=== PATIENT | male | born 1980 | race Caucasian/White ===

== ENCOUNTER 2017-10-11 14:02 | Emergency (ER) | payer OTHER ==
[~2017-10-11] VITALS: Ht 175.3 cm; Wt 59.1 kg
[2017-10-11 14:16] VITALS: BP 114/50
--- NOTE | 2017-10-11 14:26 | PHYS DOC ---
Past History Past Medical History: No Pertinent History Additional Past Medical Histor: tetanus up-to-date per the patient Smoking: Non-smoker Alcohol Use: None Adult General Chief Complaint Chief Complaint: LACERATION/AVULSION HPI HPI Patient is a 37 year old female who presents with aspiration to the tip of the right index finger with a knife in the kitchen that was clean some moderate bleeding at home she washed it out no longer bleeding no other injury. Review of Systems Review of Systems Constitutional: Denies fever or chills [] Eyes: Denies change in visual acuity, redness, or eye pain [] HENT: Denies nasal congestion or sore throat [] Respiratory: Denies cough or shortness of breath [] Cardiovascular: No additional information not addressed in HPI [] GI: Denies abdominal pain, nausea, vomiting, bloody stools or diarrhea [] : Denies dysuria or hematuria [] Musculoskeletal: Denies back pain or joint pain [] Integument: Denies rash or skin lesions [] Neurologic: Denies headache, focal weakness or sensory changes [] Endocrine: Denies polyuria or polydipsia [] All other systems were reviewed and found to be within normal limits, except as documented in this note. Physical Exam Physical Exam Constitutional: Well developed, well nourished, no acute distress, non-toxic appearance. [] HENT: Normocephalic, atraumatic, bilateral external ears normal, oropharynx moist, no oral exudates, nose normal. [] Eyes: PERRLA, EOMI, conjunctiva normal, no discharge. [] Neck: Normal range of motion, no tenderness, supple, no stridor. [] Cardiovascular:Heart rate regular rhythm, no murmur [] Lungs & Thorax: Bilateral breath sounds clear to auscultation [] Abdomen: Bowel sounds normal, soft, no tenderness, no masses, no pulsatile masses. [] Skin: Warm, dry, no erythema, no rash. [] Back: No tenderness, no CVA tenderness. [] Extremities: Examination right index finger flap-like laceration is completely sealed shut on the tip of the finger; no nailbed or nail injury; neurovascularly intact Neurologic: Alert and oriented X 3, normal motor function, normal sensory function, no focal deficits noted. [] Psychologic: Affect normal, judgement normal, mood normal. [] EKG EKG [] Radiology/Procedures Radiology/Procedures [] Course & Med Decision Making Course & Med Decision Making Pertinent Labs and Imaging studies reviewed. (See chart for details) []Wound is sealed shut, it's clean, I recommend basic wound care no indication for suturing at this time. Dragon Disclaimer Dragon Disclaimer This electronic medical record was generated, in whole or in part, using a voice recognition dictation system. Departure Departure: Impression: Primary Impression: Laceration of right index finger Disposition: HOME, SELF-CARE Condition: STABLE Referrals: MARC HODGE DO, [facility] (PCP) Patient Instructions: Fingertip Laceration Additional Instructions: Keep the finger clean and dry change dressing daily allow for to heal from the inside out. MARK HSU MD Oct 11, 2017 14:26
== END 2017-10-11 14:40 | disposition home or self-care (01) ==
LOC: ER 14:02
DX: S61.210A Laceration without foreign body of right index finger without damage to nail, initial encounter (principal); W26.0XXA Contact with knife, initial encounter; Y93.89 Activity, other specified; Y99.8 Other external cause status; Y92.89 Other specified places as the place of occurrence of the external cause
CPT/HCPCS: 99283

== ENCOUNTER 2018-02-02 13:20 | Emergency (ER) | payer OTHER ==
[~2018-02-02] VITALS: Ht 175.3 cm; Wt 63.0 kg
[2018-02-02] MEDS ORDERED: LIDO:MAALOX 1:1 20 ML SINGLE DOSE PO ONE (14:30)
[2018-02-02] MEDS ORDERED: FAMOTIDINE 20 MG/2 ML VIAL IVP ONE (14:30)
[2018-02-02] MEDS ORDERED: GLUCAGON,HUMAN RECOMBINANT 1 MG KIT. IV ONE (14:30)
[2018-02-02] MEDS ORDERED: methylPREDNISolone SOD SUCC PF 125 MG/2 ML VIAL. IV ONE (14:30)
[2018-02-02] MEDS ORDERED: PANT40TA3 PO (15:19)
[2018-02-02] MEDS ORDERED: FAMO-63 PO (15:19)
--- NOTE | 2018-02-02 15:22 | PHYS DOC ---
General Chief Complaint: DIFFICULTY SWALLOWING Stated Complaint: DIFFICULTY SWALLOWING Time Seen by MD: 13:45 Source: patient Exam Limitations: no limitations Problems: History of Present Illness Initial Comments 37-year-old comes to the ED with spouse with a report of altered throat sensation. Patient states that for the past week or so she's had a fullness or foreign body sensation which will burn when eating located at the level of the sternoclavicular notch. Although she has the sensation she has no difficulty swallowing food or breathing, no trouble handling her secretions and no cough or dyspnea on exertion. She saw her PCP at [place] last and was given a steroid taper which has not helped. Symptoms are described as mild to moderate and more of a nuisance however patient would like for us to diagnose and resolve these issues. She denies any specific instance where she ate a food bolus which she knows became stuck (although that's how she describes it feels) but rather a gradual onset foreign body sensation/fullness at the aforementioned location with exacerbations of burning pain with certain foods. Her ED vital signs are stable 18 respirations 99% room air Glucagon, Solu-Medrol, famotidine, and GI cocktail treatments initiated. Patient did become dizzy and diaphoretic after glucagon infused those symptoms resolved within a minute or so without other treatment. Timing/Duration: 1 week Severity: moderate Modifying Factors: worse with eating Associated Symptoms: cough, malaise, other Allergies: Coded Allergies: Penicillins (Verified Allergy, Intermediate, 10/11/17) Sulfa (Sulfonamide Antibiotics) (Verified Allergy, Intermediate, 10/11/17) Past Medical History Medical History: GERD Surgical History: other (ACL, breast augmentation) Social History Smoker: non-smoker Alcohol: none Drugs: none Review of Systems Constitutional: denies chills, denies diaphoresis, denies fever, denies malaise EENTM: denies throat pain, denies throat swelling, denies mouth pain, denies mouth swelling Respiratory: cough, denies orthopnea, denies shortness of breath, denies stridor, denies wheezing Cardiovascular: denies chest pain, denies palpitations, denies syncope Gastrointestinal: denies abdominal pain, denies diarrhea, denies nausea, denies vomiting Musculoskeletal: denies back pain, denies joint pain, denies muscle pain, denies neck pain Psychiatric/Neurological: denies headache, denies numbness, denies paresthesia , denies weakness Hematologic/Lymphatic: denies blood clots, denies easy bleeding, denies easy bruising Physical Exam General Appearance: WD/WN, no apparent distress Eyes: bilateral eye normal inspection, bilateral eye PERRL, bilateral eye EOMI Ear, Nose, Throat: hearing grossly normal, normal ENT inspection, normal pharynx (no hoarseness, mucous membranes moist, no foreign body visualized with limited exam) Neck: non-tender, full range of motion, supple (no stridor) Respiratory: chest non-tender, lungs clear, normal breath sounds, no respiratory distress, no accessory muscle use Cardiovascular: normal peripheral pulses, regular rate, rhythm Gastrointestinal: non tender, soft Extremities: non-tender, normal inspection Neurologic/Psychiatric: lockstitch collar setter II-XII nml as tested, no motor/sensory deficits, alert, normal mood/affect, oriented x 3 Skin: normal color, warm/dry Orders, Labs, Meds Solu-Medrol used in the event atypical presentation of allergic reaction. Famotidine use for multiple reasons including assist with GERD symptoms and Augmentin possible allergic reaction treatment. Glucagon for the remote possibility there is an actual food bolus stuck to help relax with muscle out to pass. GI cocktail for successful in relieving discomfort helps to localize anatomically site of her symptoms providing diagnostic and therapeutic assistance. 1519: Patient reports that the burning symptoms have nearly completely resolved. She still has slight feeling of a lump in her throat but states overall she is feeling much better. She understands that no emergent condition no esophageal obstruction is present and further workup must take place as an outpatient. I feel she needs a GI evaluation with swallow study and EGD patient has and must obtain referrals from [place]. Departure Time of Disposition: 15:20 Disposition: 01 HOME, SELF-CARE Diagnosis: GERD esophagitis Condition: GOOD Patient Instructions: Diet for Gastroesophageal Reflux Disease, Adult, Easy-to- Read, Esophagitis, Gastroesophageal Reflux Disease, Adult, [id number] Additional Instructions: Please review the patient education materials given by ED staff. [id number] analgesic throat sprays as needed. Follow GERD dietary and lifestyle modifications at least for the next month or so. Prescription: Pepcid 20 mg twice daily for 2 weeks, Protonix twice daily for 1 month Follow-up with your doctor in 5-7 days for recheck and to discuss outpatient EGD evaluation. Return to ED with new or changing symptoms. PARI SÁNCHEZ DO Feb 02, 2018 15:22
[2018-02-02 15:50] VITALS: BP 112/68
== END 2018-02-02 15:50 | disposition home or self-care (01) ==
LOC: ER 13:20 → EDSEX 13:20 → ER 15:50
DX: K21.0 Gastro-esophageal reflux disease with esophagitis (principal); Z88.0 Allergy status to penicillin; Z88.2 Allergy status to sulfonamides
CPT/HCPCS: 96374; 96375; 99284; J1610; J2930; S0028

== ENCOUNTER 2018-09-08 10:49 | Emergency (ER) | payer OTHER ==
[~2018-09-08] VITALS: Ht 175.3 cm; Wt 65.3 kg
[~2018-09-08 10:49] MED LIST: FAMO-63 PO; PANT40TA3 PO
[2018-09-08 11:04] VITALS: BP 120/69
[2018-09-08 11:23] LABS: BILIRUBIN,URINE NEG (NEG); CLARITY,URINE HAZY; COLOR,URINE YELLOW; GLUCOSE,URINE NEG (NEG); NITRITE,URINE NEG (NEG); UROBILINOGEN,URINE 0.2 mg/dL (0.2 mg/dL)
[2018-09-08 11:25] LABS: RBC,URINE OCC /HPF (0-2); WBC,URINE OCC /HPF (0-4)
[2018-09-08 11:26] LABS: BACTERIA,URINE MOD /HPF (0-FEW); SQUAMOUS EPITHELIAL CELL,UR FEW /LPF; U PREG PATIENT NEGATIVE (NEG)
--- NOTE | 2018-09-08 12:43 | PHYS DOC ---
Past History Past Medical History: No Pertinent History Additional Past Medical Histor: tetanus up-to-date per the patient Past Surgical History: Other Smoking: Non-smoker Alcohol Use: None Drug Use: None Adult General Chief Complaint Chief Complaint: BACK PAIN OR INJURY [facility] HPI Patient is a 38 year old female who presents with complaining of low back pain. Patient states she had urinary frequency and dysuria and hematuria that started 10 days ago and seen by her primary care physician the next day and had positive urine test for UTI and treated with Cipro and after 6 days of treatment was called by her primary care physician that her infection is E.Coli in culture results but does not responding to Cipro and medication was changed to Macrobid patient states her symptom is not getting better and she is still has discomfort urination with urinary frequency since this morning Bilateral lower back pain as a mild pain nausea. Patient denies vomiting, diarrhea and constipation, fever and chills, vaginal bleeding or discharge, or history of STD or having new sexual partner. Review of Systems Review of Systems Constitutional: Denies fever or chills [] Eyes: Denies change in visual acuity, redness, or eye pain [] HENT: Denies nasal congestion or sore throat [] Respiratory: Denies cough or shortness of breath [] Cardiovascular: No additional information not addressed in HPI [] GI: Denies abdominal pain, nausea, vomiting, bloody stools or diarrhea [] : Reports dysuria and frequency Musculoskeletal: Denies back pain or joint pain [] Integument: Denies rash or skin lesions [] Neurologic: Denies headache, focal weakness or sensory changes [] Endocrine: Denies polyuria or polydipsia [] All other systems were reviewed and found to be within normal limits, except as documented in this note. Allergies Allergies Allergies Coded Allergies Type Severity Reaction Last Updated Verified Penicillins Allergy Intermediate 10/11/17 Yes Sulfa (Sulfonamide Antibiotics) Allergy Intermediate 10/11/17 Yes Physical Exam Physical Exam Constitutional: Well developed, well nourished, no acute distress, non-toxic appearance. [] HENT: Normocephalic, atraumatic, bilateral external ears normal, oropharynx moist, no oral exudates, nose normal. [] Eyes: PERRLA, EOMI, conjunctiva normal, no discharge. [] Neck: Normal range of motion, no tenderness, supple, no stridor. [] Cardiovascular:Heart rate regular rhythm, no murmur [] Lungs & Thorax: Bilateral breath sounds clear to auscultation [] Abdomen: Bowel sounds normal, soft, no tenderness, no masses, no pulsatile masses, vaginal exam with present of singing teacher showed normal external genital with moderate amount of yellow discharge ind vagina without tenderness, patient did not want to be tested for GC chlamydia. Skin: Warm, dry, no erythema, no rash. [] Back: No tenderness, no CVA tenderness. [] Extremities: No tenderness, no cyanosis, no clubbing, ROM intact, no edema. [] Neurologic: Alert and oriented X 3, normal motor function, normal sensory function, no focal deficits noted. [] Psychologic: Affect normal, judgement normal, mood normal. [] Current Patient Data Vital Signs Vital Signs Date Time Temp Pulse Resp B/P (MAP) Pulse Ox O2 Delivery O2 Flow Rate FiO2 09/08/18 11:04 98.3 70 20 100 Room Air 09/08/18 11:04 120/69 (86) Lab Results Laboratory Tests Test 09/08/18 11:02 Urine Collection Type Unknown Urine Color Yellow Urine Clarity Hazy Urine pH 5.5 Urine Specific [place] 1.020 Urine Protein Neg (NEG-TRACE) Urine Glucose (UA) Neg mg/dL (NEG) Urine Ketones (Stick) Neg mg/dL (NEG) Urine Blood Neg (NEG) Urine Nitrite Neg (NEG) Urine Bilirubin Neg (NEG) Urine Urobilinogen Dipstick 0.2 mg/dL (0.2 mg/dL) Urine Leukocyte Esterase Neg (NEG) Urine RBC Occ /HPF (0-2) Urine WBC Occ /HPF (0-4) Urine Squamous Epithelial Cells Few /LPF Urine Bacteria Mod /HPF (0-FEW) Urine Test Negative (NEG) Microbiology 09/08/18 Wet Prep - Final, Complete EKG EKG [] Radiology/Procedures Radiology/Procedures [] Course & Med Decision Making Course & Med Decision Making Pertinent Labs reviewed. (See chart for details) Evaluation of patient in ER showed 38-year-old female patient with complaining of UTI symptoms for 10 days and treatment with 2 course of Cipro and Macrobid. Patient had unremarkable physical exam and UA. Vaginal exam showed moderate amount of discharge with WBC. Patient informed about test results and didn't want to have any pain medication. Plan discharge patient home to diagnose of bacterial vaginitis and prescription of Flagyl. Dragon Disclaimer Dragon Disclaimer This electronic medical record was generated, in whole or in part, using a voice recognition dictation system. Departure Departure: Impression: Primary Impression: Bacterial vaginitis Additional Impressions: Dysuria Urinary frequency Disposition: HOME, SELF-CARE (at 1248) Condition: STABLE Referrals: MARC HODGE DO, [facility] (PCP) Patient Instructions: Cervicitis Additional Instructions: Drink plenty of liquids Follow-up with your primary care physician in 3-5 days Return to ER if not getting better Scripts Metronidazole (FLAGYL) 500 Mg Tablet 4 TAB PO ONCE, #4 TAB Prov: KEVEN VICTORIA MD 09/08/18 Problem Qualifiers KEVEN VICTORIA MD Sep 08, 2018 12:43
[2018-09-08] MEDS ORDERED: METR500T PO (12:50)
== END 2018-09-08 13:00 | disposition home or self-care (01) ==
LOC: ER 10:49
DX: N76.0 Acute vaginitis (principal); B96.89 Other specified bacterial agents as the cause of diseases classified elsewhere; R30.0 Dysuria; R35.0 Frequency of micturition; M54.5 Low back pain; Z88.0 Allergy status to penicillin; Z88.2 Allergy status to sulfonamides
CPT/HCPCS: 81001; 81025; 87086; 99284; Q0111